=== PATIENT | female | born 2005 | race Caucasian/White ===

== ENCOUNTER 2024-01-27 09:06 | Day surgery (SDC) | payer OTHER, SELFPAY ==
--- NOTE | 2024-01-27 09:17 | US_ITS ---
The [address] [address] Patient Name: DINAH PILLAI MRN: [id number] date: 2005 Sex: F Assigned Patient Location: [place] Current Patient Location: [place] Accession/Order Number: [id number] Exam Date: 01/27/2024 09:20 Report Date: 01/27/2024 11:29 At the request of: PAWEL CROOK Procedure: US biopsy thyroid EXAMINATION: US biopsy thyroid HISTORY: Thyroid Nodule COMPARISON: No relevant comparison available. TECHNIQUE: After obtaining informed consent, an ultrasound-guided biopsy was performed in the usual sterile manner. FINDINGS: IMAGING: Ultrasound BIOPSY NEEDLE: 2 inch 25-gauge SPECIMEN TYPE, #, LOCATION: 3 fine-needle aspirates, 3.1 cm right thyroid mixed solid and cystic nodule MEDICATION: 2 cc 1% buffered lidocaine COMPLICATIONS: None. LABORATORY: Pathology and molecular studies pending OTHER: Negative. US/US biopsy thyroid IMPRESSION: Uneventful ultrasound guided biopsy. The patient was instructed to obtain follow up care and biopsy results from the referring physician. Electronically authenticated by: DODIE FAGAN Date: 01/27/2024 11:29
[2024-01-27 09:20] VITALS: PULSE 87; O2SAT 97
[2024-01-27] MEDS: LIDOCAINE HCL 10 ML, SODIUM BICARBONATE 1 MEQ INJ (10:20)
--- NOTE | 2024-01-27 11:38 | SUR.PREOP ---
01/14/24 Pt instructed on procedure, date, time ,and prep.
--- NOTE | 2024-01-27 11:43 | PC.NURSE ---
1035 Pt teary at end of procedure and given support. Pt states it was just from the anxiety and fear but is fine physically.
== END 2024-01-27 10:45 | disposition home or self-care (01) ==
LOC: US 09:11
PROVIDERS: Radiology Diagnostic Radiology; PCP Nurse Practitioner; Visit Provider Otolaryngology
DX: E04.1 Nontoxic single thyroid nodule (principal)
CPT/HCPCS: 10005; 88173